=== PATIENT | female | born 1980 ===

== ENCOUNTER 2016-09-14 23:24 | Emergency (ER) | payer SELFPAY ==
[2016-09-15 00:05] VITALS: TEMP 97.7; BMI 33.6
[2016-09-15] MEDS ORDERED: TDAP Vaccine 0.5 mL Syr IM ONE (00:12)
--- NOTE | 2016-09-15 00:14 | ED PDOC ---
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 Patient stated a glass broke, causing laceration left thumb. Last tetanus is UKN. Patient is left hand dominant. Patient has FROM on all fingers. Time/Duration: Prior to Arrival Context: Home Past Medical History - Provider Review Nursing Documentation Reviewed: Yes - Infectious Disease Hx of Infectious Diseases: None - Tetanus Immunization Tetanus Immunization: Unknown - Cardiac Hx Cardiac Disorders: Yes Hx Hypertension: Yes - Pulmonary Hx Asthma: Yes - Neurological Hx Neurological Disorder: No - HEENT Hx HEENT Disorder: No - Renal Hx Renal Disorder: No - Endocrine/Metabolic Hx Endocrine Disorders: No - Hematological/Oncological Hx Blood Disorders: No - Integumentary Hx Dermatological Disorder: No - Musculoskeletal/Rheumatological Hx Musculoskeletal Disorders: No - Gastrointestinal Hx Gastrointestinal Disorders: No - Genitourinary/Gynecological Hx Genitourinary Disorders: No - Psychiatric Hx Psychophysiologic Disorder: No Hx Substance Use: No - Surgical History Hx Cholecystectomy: Yes Hx Tonsillectomy: Yes - Anesthesia Hx Anesthesia: Yes Hx Anesthesia Reactions: No Hx Malignant Hyperthermia: No Family/Social History - Physician Review Nursing Documentation Reviewed: Yes Family/Social History: No Known Family HX Smoking Status: Light Smoker < 10 Cigarettes Daily Hx Alcohol Use: Yes Hx Substance Use: No Allergies/Home Meds Allergies/Adverse Reactions: Allergies cm Allergy (Verified 09/15/16 00:07) ANAPHYLAXIS shrimp Allergy (Verified 09/15/16 00:07) ANAPHYLAXIS Home Medications: Home Meds Medication Instructions Recorded Confirmed Albuterol HFA [Ventolin HFA 90 1 inh INH PRN PRN 05/30/16 05/30/16 mcg/actuation (8 g)] Fluticasone/Salmeterol 250/50 1 inh INH BID 05/30/16 05/30/16 [Advair Diskus 250/50] Losartan [Cozaar] 50 mg PO DAILY 05/30/16 05/30/16 Review of Systems - Review of Systems Constitutional: Normal. absent: Fatigue, Weight Change, Fevers Eyes: Normal ENT: Normal Respiratory: Normal. absent: SOB, Cough Cardiovascular: Normal Gastrointestinal: Normal. absent: Abdominal Pain, Nausea, Vomiting Genitourinary Female: Normal. absent: Dysuria, Frequency, Hematuria Musculoskeletal: Normal Skin: Laceration Neurological: Normal Endocrine: Normal Hemo/Lymphatic: Normal Psychiatric: Normal Physical Exam Vital Signs Temp Pulse Resp BP Pulse Ox 09/15/16 00:04 97.7 F 85 20 194/102 H 100 Temperature: Afebrile Blood Pressure: Normal Pulse: Regular Respiratory Rate: Normal Appearance: Positive for: Well-Appearing, Non-Toxic, Comfortable Pain Distress: None Mental Status: Positive for: Alert and Oriented X 3 - Systems Exam Head: Present: Atraumatic, Normocephalic Pupils: Present: PERRL Extroacular Muscles: Present: EOMI Conjunctiva: Present: Normal Mouth: Present: Moist Mucous Membranes Upper Extremity: Present: Normal ROM, NORMAL PULSES, Neurovascularly Intact, Capillary Refill < 2s, Other ((+) left dorsal superficial laceration, u-shape. Approx. 1.7 cm. no deep structures involvement.). No: Cyanosis, Edema, Tenderness, Swelling Lower Extremity: Present: Normal Inspection, Normal ROM, Neurovascularly Intact , Capillary Refill < 2 s. No: Edema Neurological: Present: GCS=15, CN II-XII Intact, Speech Normal, Motor Func Grossly Intact Skin: Present: Warm, Dry, Normal Color, Laceration (See UE). No: Rashes Psychiatric: Present: Alert, Oriented x 3 Medical Decision Making ED Course and Treatment: 09/15/16 01:06 Re-evaluation. Patient feels better. Discussed results and plan with patient who expresses understanding. All questions answered and there is agreement with the plan to discharge home with instructions. Patient stable for discharge. Return if symptoms persist or worsen. Re-evaluation Time: 01:06 Reassessment Condition: Re-examined, Improved - Medication Orders Current Medication Orders: Discontinued Medications Tetanus/Reduced Diphtheria/Acell Pertussis (Boostrix Vaccine Inj) 0.5 ml IM .ONCE ONE Stop: 09/15/16 00:13 Last Admin: 09/15/16 00:39 Dose: 0.5 ML [facility] Immunization Data Document 09/15/16 00:39 EKEOO (Rec: 09/15/16 00:40 EKEOO [facility] [place]- [id number]) Immunization Data Vaccine Lot Number [id number] Vaccine Expiration Date 08/28/18 Site Given Left Deltoid Immunization Units ml - Procedure PROCEDURE NOTE (Text): 09/15/16 01:00 PROCEDURE: LACERATION REPAIR Performed by the emergency provider Location: left thumb Length: 1.7 cm Description: clean wound edges, no foreign bodies Distal CMS: Normal. No deficits. Neurovascularly intact. Anesthesia: none Preparation: The wound was cleaned with NS and [place]. The area was prepped and draped in the usual sterile fashion. Exploration: The wound was explored and no foreign bodies were found. Procedure: The wound was closed with Dermabond. There was good approximation. Post-Procedure: Good closure and hemostasis. The patient tolerated the procedure well and there were no complications. CSM remains intact. Post procedure dressing applied Disposition/Present on Arrival - Present on Arrival Any Indicators Present on Arrival: No History of DVT/PE: No History of Uncontrolled Diabetes: No Urinary Catheter: No History of Decub. Ulcer: No History Surgical Site Infection Following: None - Disposition Have Diagnosis and Disposition been Completed?: Yes Diagnosis: Laceration Disposition: HOME/ ROUTINE Disposition Time: :06 Patient Plan: Discharge Patient Problems: Current Active Problems Problem Status Diagnosed Laceration Acute Condition: GOOD Discharge Instructions (ExitCare): Laceration (ED), Skin Adhesive Care (ED) Additional Instructions: Call private doctor for follow up visit in 2-3 days. keep wound clean and dry for 3 days, then clean wound with soap and water daily. Keep wound cover with gauze or band aid. Return to emergency if wound becomes painful, redness, or discharge Referrals: [facility] [Outside] - Follow up with primary Forms: WORK NOTE
[2016-09-15 01:18] VITALS: BP 184/99; PULSE 75; RESP 16; O2SAT 99
== END 2016-09-15 01:18 | disposition home or self-care (01) ==
LOC: ED 23:24
DX: S61.012A Laceration without foreign body of left thumb without damage to nail, initial encounter (principal); W25.XXXA Contact with sharp glass, initial encounter; Y92.9 Unspecified place or not applicable; Z23 Encounter for immunization

== ENCOUNTER 2017-03-12 18:46 | Emergency (ER) | payer MEDICAID, OTHER ==
[2017-03-12 18:46] VITALS: BMI 33.6
[2017-03-12 19:00] VITALS: TEMP 98.2
[2017-03-12] MEDS ORDERED: Albuterol-Ipratrop 3 mg / 0.5 (3 ml) UD IH STA (19:36)
--- NOTE | 2017-03-12 19:41 | ED PDOC ---
Arrival/HPI - General Chief Complaint: Flu-like Symptoms Time Seen by Provider: 03/12/17 19:19 Historian: Patient - History of Present Illness Narrative History of Present Illness (Text): 03/12/17 19:35 A 36 year old female, whose past medical history includes asthma, presents to the emergency department complaining of flu-like symptoms for 1 week. Patient reports productive cough, congestion and runny nose. She also notes occasional wheezing and mild discomfort when taking deep breaths. Patient used nebulizer treatments at home, with mild improvement of symptoms. Patient denies any fever , chills, nausea, vomiting, abdominal pain or any other complaints. Time/Duration: 1 week Symptom Course: Unchanged Quality: Other Context: Home Past Medical History - Provider Review Nursing Documentation Reviewed: Yes - Infectious Disease Hx of Infectious Diseases: None - Tetanus Immunization Tetanus Immunization: Unknown - Cardiac Hx Cardiac Disorders: Yes Hx Hypertension: Yes - Pulmonary Hx Asthma: Yes - Neurological Hx Neurological Disorder: No - HEENT Hx HEENT Disorder: No - Renal Hx Renal Disorder: No - Endocrine/Metabolic Hx Endocrine Disorders: No - Hematological/Oncological Hx Blood Disorders: No - Integumentary Hx Dermatological Disorder: No - Musculoskeletal/Rheumatological Hx Musculoskeletal Disorders: No - Gastrointestinal Hx Gastrointestinal Disorders: No - Genitourinary/Gynecological Hx Genitourinary Disorders: No - Psychiatric Hx Psychophysiologic Disorder: No Hx Substance Use: No - Surgical History Hx Cholecystectomy: Yes Hx Tonsillectomy: Yes - Anesthesia Hx Anesthesia: Yes Hx Anesthesia Reactions: No Hx Malignant Hyperthermia: No Family/Social History - Physician Review Nursing Documentation Reviewed: Yes Family/Social History: No Known Family HX Smoking Status: Light Smoker < 10 Cigarettes Daily Hx Alcohol Use: Yes Hx Substance Use: No Allergies/Home Meds Allergies/Adverse Reactions: Allergies cm Allergy (Verified 09/15/16 00:07) ANAPHYLAXIS shrimp Allergy (Verified 09/15/16 00:07) ANAPHYLAXIS Home Medications: Home Meds Medication Instructions Recorded Confirmed Albuterol HFA [Ventolin HFA 90 1 inh INH PRN PRN 05/30/16 05/30/16 mcg/actuation (8 g)] Fluticasone/Salmeterol 250/50 1 inh INH BID 05/30/16 05/30/16 [Advair Diskus 250/50] Losartan [Cozaar] 50 mg PO DAILY 05/30/16 05/30/16 Review of Systems - Physician Review All systems were reviewed & negative as marked: Yes - Review of Systems Constitutional: absent: Fevers, Night Sweats ENT: Rhinorrhea, Sinus Congestion Respiratory: SOB, Cough, Sputum, Wheezing Gastrointestinal: absent: Abdominal Pain, Nausea, Vomiting Physical Exam Vital Signs Reviewed: Yes Vital Signs Temp Pulse Resp BP Pulse Ox 03/12/17 22:10 86 14 162/93 H 98 03/12/17 18:53 98.2 F 90 16 143/94 H 100 Temperature: Afebrile Blood Pressure: Hypertensive Pulse: Regular Respiratory Rate: Normal Appearance: Positive for: Well-Appearing, Non-Toxic, Comfortable Pain Distress: None Mental Status: Positive for: Alert and Oriented X 3 - Systems Exam Head: Present: Atraumatic, Normocephalic Pupils: Present: PERRL Extroacular Muscles: Present: EOMI Conjunctiva: Present: Normal Mouth: Present: Moist Mucous Membranes Pharnyx: No: ERYTHEMA, EXUDATE, TONSILS ENLARGED Neck: Present: Normal Range of Motion Respiratory/Chest: Present: Good Air Exchange, Wheezes (Faint expiratory wheezing in right lung field). No: Respiratory Distress, Accessory Muscle Use, Rales Cardiovascular: Present: Regular Rate and Rhythm, Normal S1, S2. No: Murmurs Abdomen: Present: Normal Bowel Sounds. No: Tenderness, Distention, Peritoneal Signs Back: Present: Normal Inspection Upper Extremity: Present: Normal Inspection. No: Cyanosis, Edema Lower Extremity: Present: Normal Inspection. No: Edema Neurological: Present: GCS=15, CN II-XII Intact, Speech Normal Skin: Present: Warm, Dry, Normal Color. No: Rashes Psychiatric: Present: Alert, Oriented x 3, Normal Insight, Normal Concentration Medical Decision Making ED Course and Treatment: 03/12/17 19:35 Impression: A 36 year old female with flu like symptoms. Plan: -- Chest xray -- Influenza A B Stat -- Duoneb -- Reassess and disposition Progress Notes: - Lab Interpretations Lab Results: Lab Results 03/12/17 18:15: Influenza Typ A,B (EIA) Negative for flu a/b - RAD Interpretation Narrative RAD Interpretations (Text): 03/12/17 22:41 CXR- No acute process Radiology Orders: 03/12/17 19:37 CHEST TWO VIEWS (PA/LAT) [RAD] Stat [employer] Attendant: ED Physician - Medication Orders Current Medication Orders: Discontinued Medications Albuterol/Ipratropium (Duoneb 3 Mg/0.5 Mg (3 Ml) Ud) 3 ml IH ONCE STA Stop: 03/12/17 19:37 Last Admin: 03/12/17 20:12 Dose: 3 ml Azithromycin (Zithromax) 500 mg PO ONCE STA PRN Reason: Protocol Stop: 03/12/17 22:51 Last Admin: 03/12/17 23:02 Dose: 500 mg - Scribe Statement The provider has reviewed the documentation as recorded by the Jude rAanda Provider Scribe Attestation: All medical record entries made by the Scribe were at my direction and personally dictated by me. I have reviewed the chart and agree that the record accurately reflects my personal performance of the history, physical exam, medical decision making, and the department course for this patient. I have also personally directed, reviewed, and agree with the discharge instructions and disposition. Disposition/Present on Arrival - Present on Arrival Any Indicators Present on Arrival: No History of DVT/PE: No History of Uncontrolled Diabetes: No Urinary Catheter: No History of Decub. Ulcer: No History Surgical Site Infection Following: None - Disposition Have Diagnosis and Disposition been Completed?: Yes Diagnosis: Asthma, Bronchitis Disposition: HOME/ ROUTINE Disposition Time: 22:46 Condition: GOOD Discharge Instructions (ExitCare): Asthma (ED), Acute Bronchitis (ED) Additional Instructions: Medication as prescribed/follow up with your doctor this week Prescriptions: Azithromycin [Zithromax] 250 mg PO DAILY #4 tab Referrals: Denise Lizarraga MD [Primary Care Provider] - Follow up with primary Forms: [email or web address] (German)
[2017-03-12 22:16] VITALS: BP 162/93; PULSE 86; RESP 14; O2SAT 98
--- NOTE | 2017-03-13 12:30 | RAD ---
HISTORY: cough COMPARISON: 05/30/2016 TECHNIQUE: Chest PA and lateral FINDINGS: LUNGS: Currently no definitive consolidation/infiltrate issued. Patient's large body habitus and pendulous breast at to the density over both lung bases. PLEURA: No significant pleural effusion identified. No pneumothorax apparent. CARDIOVASCULAR: Normal. OSSEOUS STRUCTURES: Thoracic spondylosis. Bilateral shoulder arthrosis VISUALIZED UPPER ABDOMEN: Normal. OTHER FINDINGS: None. IMPRESSION: No active disease.
== END 2017-03-12 23:03 | disposition home or self-care (01) ==
LOC: ED 18:46
DX: J45.909 Unspecified asthma, uncomplicated (principal)